=== PATIENT | female | born 1960 | race Caucasian/White ===

== ENCOUNTER → 2018-02-01 09:19 | Outpatient (CLI) | payer OTHER, SELFPAY ==
--- NOTE | 2018-02-01 | DI.US.S_ITS ---
ULTRASOUND OF LEFT BREAST: 02/01/2018 CLINICAL: Palpable left breast lumps. Comparison is made to exams dated: 02/01/2018 mammogram, 10/16/2017 mammogram, 11/08/2015 mammogram, and 08/01/2013 mammogram - [facility]. Color flow ultrasound of the left breast was performed. Jimenez scale images of the real-time examination were reviewed. There are sonographically normal left axillary lumph nodes. IMPRESSION: NEGATIVE There is no sonographic evidence of malignancy. The more posterior areas of concern may correspond to lymph nodes. For the more anterior areas of concern there are no abnormalities seen in the left breast to correspond. Recommend any decision for further evaluation be based on clinical findings. A 1 year screening mammogram is recommended. This exam was interpreted at Station ID: [id number]. Electronically Signed By: Mane Luke M.D. cj/:02/01/2018 11:28:48 letter sent: Clinical Evaluation Ultrasound BI-RADS: 1 Negative
--- NOTE | 2018-02-01 | DI.MG.S_ITS ---
UNILATERAL LEFT DIGITAL DIAGNOSTIC MAMMOGRAM 3D/2D: 02/01/2018 CLINICAL: Left breast masses. Comparison is made to exams dated: 10/16/2017 mammogram, 11/08/2015 mammogram, and 08/01/2013 mammogram - [facility]. The tissue of the left breast is heterogeneously dense. This may lower the sensitivity of mammography. No significant masses, calcifications, or other findings are seen in the breast. IMPRESSION: INCOMPLETE: NEEDS ADDITIONAL IMAGING EVALUATION There are no abnormalities seen in the left breast to correspond with the area of clinical concern and palpable nodularities, however, ultrasound is recommended. This exam was interpreted at Station ID: [id number]. NOTE: For mammograms, a report in lay terms will be sent to the patient. Approximately 15% of breast malignancies will not be visualized mammographically. In the management of a palpable breast mass, a negative mammogram must not discourage biopsy of a clinically suspicious lesion. Electronically Signed By: Mane kenny/alvin:02/01/2018 11:27:03 ACR BI-RADS Category 0: Incomplete [id number]
== END ==
PROVIDERS: PCP Family Medicine; Visit Provider Nurse Practitioner Family
DX: R92.8 Other abnormal and inconclusive findings on diagnostic imaging of breast (principal); N63.20 Unspecified lump in the left breast, unspecified quadrant
CPT/HCPCS: 76642; 77065; G0279

== ENCOUNTER → 2018-12-13 13:47 | Outpatient (CLI) | payer OTHER, SELFPAY | PROVIDERS: PCP Family Medicine; Visit Provider Nurse Practitioner Family | DX: M81.0 Age-related osteoporosis without current pathological fracture (principal); Z78.0 Asymptomatic menopausal state; E55.9 Vitamin D deficiency, unspecified; E28.39 Other primary ovarian failure; Z82.62 Family history of osteoporosis; Z87.891 Personal history of nicotine dependence | CPT/HCPCS: 77080 ==

== ENCOUNTER → 2019-02-03 10:52 | Outpatient (CLI) | payer OTHER, SELFPAY ==
--- NOTE | 2019-02-03 | DI.MG.S_ITS ---
BILATERAL DIGITAL SCREENING MAMMOGRAM 3D/2D WITH CAD: 02/03/2019 CLINICAL: Routine screening. Family history of breast cancer. Comparison is made to exams dated: 02/01/2018 mammogram, 10/16/2017 mammogram, 11/08/2015 mammogram, and 08/01/2013 mammogram - [facility]. The tissue of both breasts is heterogeneously dense. This may lower the sensitivity of mammography. Current study was also evaluated with a Computer Aided Detection (CAD) system. No significant masses, calcifications, or other findings are seen in either breast. There has been no significant interval change. IMPRESSION: NEGATIVE There is no mammographic evidence of malignancy. A 1 year screening mammogram is recommended. This exam was interpreted at Station ID: [id number]. NOTE: For mammograms, a report in lay terms will be sent to the patient. Approximately 15% of breast malignancies will not be visualized mammographically. In the management of a palpable breast mass, a negative mammogram must not discourage biopsy of a clinically suspicious lesion. Electronically Signed By: Reddy gallardo/alvin:02/03/2019 16:05:02 copy to: MICHAEL MEJÍA letter sent: Normal Exam ACR BI-RADS Category 1: Negative [id number]
== END ==
PROVIDERS: PCP Family Medicine; Visit Provider Nurse Practitioner Family
DX: Z12.31 Encounter for screening mammogram for malignant neoplasm of breast (principal); Z80.3 Family history of malignant neoplasm of breast
CPT/HCPCS: 77063; 77067

== ENCOUNTER 2019-03-31 12:33 | Emergency (ER) | payer OTHER, SELFPAY ==
[2019-03-31] VITALS (9 sets, daily range): BP systolic 102–142; BP diastolic 47–72; PULSE 59–89; RESP 14–24; TEMP 36.8–38.8; O2SAT 98–100; BMI 20.9
--- NOTE | 2019-03-31 12:59 | DI.US.S_ITS ---
PROCEDURE: US ABDOMEN COMPLETE INDICATIONS: RLQ PAIN, CONCERN FOR APPY VS. OTHER TECHNIQUE: Real-time scanning was performed of the abdominal and retroperitoneal organs, with image documentation. COMPARISON: None. FINDINGS: Liver: Liver is normal in size. There is an echogenic solid lesion in the lateral segment of the left lobe measuring 2.3 x 1.3 x 0.9 cm, likely representing a hemangioma. There is a pleural-based nodule subjacent to the right lobe of the liver, in the right hemithorax, measuring 1.9 x 1.3 x 2.2 cm. Gallbladder: Is contracted. No gallstones are identified. Biliary ducts: Intrahepatic bile ducts are non-dilated. Extrahepatic bile duct caliber measures 5 mm. Normal is 6-7 mm or less in diameter, or 10 mm or less post-cholecystectomy. Pancreas: Visualized portions of the pancreas are sonographically normal. Spleen: Spleen is normal in size and homogeneous in echotexture. Kidneys: Kidneys are normal in size and echotexture. Right kidney measures 11.2 cm long; left kidney measures 10.7 cm long. No hydronephrosis or nephrolithiasis. No solid masses. Aorta: Visualized aorta is normal in caliber at less than 3 cm. Iliacs: Proximal common iliac arteries are normal in caliber at less than 2.5 cm. IVC: Intrahepatic inferior vena cava is patent. Miscellaneous: No free abdominal fluid. No appendix is identified. Right lower quadrant was interrogated with 5 mm linear transducer. IMPRESSION: 1. No sonographic evidence of acute appendicitis. 2. Probable hemangioma, left lobe of liver. 3. Pleural based nodular density in the extreme right lung base. Comment: Consider CT for further evaluation. Findings were discussed with Dr. Pete at the time of study dictation. Dictated by: Kan Giordano M.D. on 03/31/2019 at 14:07 Approved by: Kan Giordano M.D. on 03/31/2019 at 14:18
[2019-03-31 13:40] LABS: Bacteria Urine None Seen
[2019-03-31 14:31] LABS: Add Manual Diff / Slide Review NO; Basophils Absolute Auto 0 /uL (0-100); Basophils Percent Auto 0.3 % (0-2); Eosinophils Absolute Auto 0 /uL (0-450); Eosinophils Percent Auto 0.4 % (2-4); Hematocrit 36.3 % (36-46); Lymphocytes Absolute Auto 600 /uL (1100-4500); Lymphocytes Percent Auto 11.2 % (25-40); Mean Corpuscular Hemoglobin 27.2 PG (26-34); Mean Corpuscular Volume 82.2 fL (80-100); Monocytes Absolute Auto 700 /uL (0-900); Monocytes Percent Auto 13.9 % (3-14); Neutrophils Absolute Auto 3800 /uL (1500-7000); Neutrophils Percent Auto 74.2 % (50-75); Platelet Count 148 X10^3/uL (150-400); Red Blood Cell Count 4.42 X10^6/uL (4.0-5.2); Red Cell Distribution Width 12.7 % (11.6-14.8); White Blood Cell Count 5.1 X10^3/uL (4.5-11.0)
[2019-03-31 14:31] LABS: INR 1.2 (0.9-1.3); Prothrombin Time 13.5 SECONDS (10.1-12.7)
[2019-03-31 14:33] LABS: PTT Partial Thromboplastin Tim 28 SECONDS (26.4-36.2)
[2019-03-31 14:34] LABS: Alanine Aminotransferase 10 IU/L (9-52); Albumin 4.2 g/dL (3.5-5.0); Albumin Globulin Ratio 1.2 (1.0-2.8); Alkaline Phosphatase 65 U/L (38-126); Aspartate Aminotransferase 16 IU/L (14-36); Bilirubin Total 0.4 mg/dL (0.2-1.3); Blood Urea Nitrogen 12 mg/dL (7-17); Calcium 9.1 mg/dL (8.4-10.2); Carbon Dioxide 30 mmol/L (22-32); Chloride 98 mmol/L (98-107); Estimated Glomerular Filt Rate > 60.0 mL/min (>60); Globulin 3.6 g/dL (1.7-4.1); Glucose 88 mg/dL (80-110); HEMOLYSIS < 15 (0-50); Lipase 53 U/L (23-300); Potassium 3.6 mmol/L (3.4-5.1); Sodium 139 mmol/L (137-145); Total Protein 7.8 g/dL (6.3-8.2)
[2019-03-31 14:46] LABS: Culture Indicated Urine Cult Not Indicated; RBC Urine 5-10/HPF (0-5/HPF); Squamous Epithelial Cell Urine 5-10 /HPF (0-5/HPF); WBC Urine 1-5/HPF (0-5/HPF)
[2019-03-31] MEDS: ACETAMINOPHEN 325 MG TABLET 975 MG PO (14:49)
--- NOTE | 2019-03-31 16:27 | DI.CT.S_ITS ---
PROCEDURE: CT ABDOMEN PELVIS W CON INDICATIONS: abdominal pain and fever, flank pain TECHNIQUE: After the administration of intravenous contrast, 5 mm thick sections acquired from the diaphragm to the symphysis. 5 mm coronal and sagittal reformats were acquired. For radiation dose reduction, the following was used: automated exposure control, adjustment of mA and/or kV according to patient size. COMPARISON: None. FINDINGS: Image quality: Excellent. ABDOMEN: Lung bases: Patchy bronchopneumonia involving the right lower lobe.. Heart size is normal. Solid organs: Liver is normal in size and enhancement. Gallbladder is contracted. Biliary system is non dilated. Pancreas enhances normally. Spleen is normal in size and enhancement. No adrenal nodules. Kidneys demonstrate normal size and enhancement, without hydronephrosis. Peritoneum and bowel: Bowel loops demonstrate normal wall thickness and caliber. No free fluid or air. A normal appendix is identified. Nodes and vessels: No retroperitoneal or mesenteric adenopathy by size criteria. Aorta and inferior vena cava are normal in size. Miscellaneous: No ventral hernias. PELVIS: Genitourinary: Bladder wall thickness is normal. Miscellaneous: No inguinal hernias or adenopathy. There is a fairly large amount of air present in the vagina. Bones: No suspicious bony lesions. No vertebral body compression fractures. IMPRESSION: 1. There is bronchopneumonia involving the right lower lobe. Suggest progress films until clear. 2. There is a fairly large amount of air, greater than typically seen, and the vagina. Recommend clinical correlation to exclude rectovaginal fistula. 3. Normal appendix. Dictated by: Kan Giordano M.D. on 03/31/2019 at 16:56 Approved by: Kan Giordano M.D. on 03/31/2019 at 17:04
[2019-03-31] MEDS: SODIUM CHLORIDE 0.9% 1,000 ML 1000 ML IV (16:58)
--- NOTE | 2019-03-31 17:35 | ED.ABDPAIN ---
HPI - Abdominal Pain <Daquan Diop [facility] - Last Filed: 04/01/19 01:02> General Chief Complaint: Abdominal Pain Stated Complaint: possible appendicitis Time Seen by Provider: 03/31/19 12:59 Source: patient Mode of arrival: ambulatory Limitations: no limitations History of Present Illness HPI narrative: This is a pleasant 59-year-old female, previous long time smoker, who presents with her friend with chief complain of fever, chills, upper mid left abdomen pain for last 6 days. She reports urinary frequency but no other urinary symptoms such as urgency, dysuria, or hematuria. The patient is from [place] and she was referred by her primary care provider for evaluation in ER to rule out appendicitis. The patient reports she had intermittent nausea, mildly decreased appetite. Her stool has been normal for her and denies diarrhea. She had a small p.o. intake at 12:00 p.m. Related Data Home Medications Medication Instructions Recorded Confirmed acyclovir 400 mg PO TID PRN 03/31/19 03/31/19 azelastine 1 spray INTRANASAL BID PRN 03/31/19 03/31/19 sertraline 100 mg PO QPM 03/31/19 03/31/19 Previous Rx's Medication Instructions Recorded diclofenac sodium [Voltaren] 1 ganesh TOPICAL QID #100 gm 01/01/17 doxycycline hyclate 100 mg PO BID 7 Days #14 tab 03/31/19 ondansetron 4 mg PO Q6H PRN #10 tab 03/31/19 Allergies Allergy/AdvReac Type Severity Reaction Status Date / Time amoxicillin [AMOXICILLIN] Allergy Intermediate HIVES Verified 04/01/19 14:14 Penicillins [PENICILLINS] Allergy Intermediate HIVES Verified 04/01/19 14:14 ENVIRONMENTAL Allergy Intermediate RUNNY Uncoded 04/01/19 14:14 NOSE, HEAD PRESSURE Review of Systems <Daquan Diop [facility] - Last Filed: 04/01/19 01:02> Review of Systems General: See HPI HEENT: Denies sinus pain, ear pain, sore throat, difficulty swallowing, dizziness. Respiratory: Denies dyspnea, cough, wheezing, hemoptysis, sputum. Cardiovascular: Denies chest pain, palpitations, orthopnea, edema. Gastrointestinal: See HPI : See HPI Musculoskeletal: Denies weakness, joint pain or bony pain. Skin: Denies rash, skin lesions, or other. Neurologic: Denies weakness, headache, numbness, change in speech, confusion, seizures, incoordination. Psychiatric: No concerning psychosocial issues. 12-point review of systems is negative except for those stated above. PFSH <JOSEMANUEL ClaireP - Last Filed: 04/01/19 01:02> Medical History (System 04/01/19 @ 14:14 by Any Acosta) Depression (Acute) Seasonal allergic rhinitis (Acute) HSV infection (Chronic) Surgical History (System 04/01/19 @ 14:14 by Any Acosta) H/O thumb surgery (Chronic) History of tubal ligation (Chronic) S/P breast lumpectomy (Chronic) Social History (System 04/01/19 @ 14:14 by Any Acosta) Smoking Status: Former smoker Social History (System 04/01/19 @ 14:14 by Any Acosta) Smoking Status: Former smoker Exam <Daquan Jadon [facility] - Last Filed: 04/01/19 01:02> Narrative Exam Narrative: GEN: Alert, oriented x 3, appears to be younger than her stated age, and in no acute distress. Head: Normal cephalic, atraumatic. No scalp or temporal tenderness, palpable mass or rash. EYES: Pupils are equal, round, and reactive to light and accommodation. Extraocular muscles are intact bilaterally. There is no subconjunctival hemorrhage, exudate and sclera non-icteric. ENT: Bilateral auditory canals and tympanic membranes. Hearing grossly intact. Nose without bleeding, purulent discharge. Mucous membrane moist, no mucosal lesion. Throat without erythema, tonsillar hypertrophy or exudate. Uvula in midline, airway patent. Neck: Trachea in midline. No JVD, non-tender without lymphadenopathy. No masses or thyroid megaly. Supple, non-tender and meningeal signs. CARDIAC: Normal regular rate and rhythm without murmurs, gallops, or rubs. No chest wall tenderness. No peripheral edema, cyanosis or pallor. Capillary refill is less than 2 seconds. RESPIRATORY: Lungs are cleat to auscultate bilaterally. No cough, wheezes, rales, or rhonchi. No stridor, respiratory distress, increase work of breathing, or accessary muscle used. ABD: Abdomen soft, non-distended, tender to palpate in mid abdomen. No guarding or rebound tenderness to palpate. Bowel sounds are normal in all 4 quadrants. There is no palpable masses or organomegaly. EXT: Full painless ROM of all extremities with no loss of sensation, strength, effusion or edema. SKIN: Hot, dry, normal color for patient. No erythema, lesions or rash. BACK: Nontender without deformity or crepitance. Bilateral flank tenderness by deep palpation. NEUROLOGICAL: Alert and oriented to place, time and person. Sensation and motor function intact bilaterally. No facial droops, dysphasia. PSYCHIATRIC: Good judgement and reason, without hallucinations, abnormal affect or abnormal behaviors during the examination. Initial Vital Signs Initial Vital Signs: Vital Signs Temperature 100.1 F H 03/31/19 12:48 Pulse Rate 79 03/31/19 12:48 Respiratory Rate 16 03/31/19 12:48 Blood Pressure 142/72 H 03/31/19 12:48 Pulse Oximetry 100 03/31/19 12:48 <Haley Pete DO - Last Filed: 04/02/19 18:24> Initial Vital Signs Initial Vital Signs: Vital Signs Temperature 100.1 F H 03/31/19 12:48 Pulse Rate 79 03/31/19 12:48 Respiratory Rate 16 03/31/19 12:48 Blood Pressure 142/72 H 03/31/19 12:48 Pulse Oximetry 100 03/31/19 12:48 Course <RITESH Claire - Last Filed: 04/01/19 01:02> Orders Ordered: Discontinued Medications Acetaminophen (Tylenol) 975 mg PO NOW ONE Stop: 03/31/19 14:47 Last Admin: 03/31/19 14:49 Dose: 975 mg Doxycycline Hyclate (Vibramycin) 100 mg PO NOW ONE Stop: 03/31/19 18:19 Last Admin: 03/31/19 18:30 Dose: 100 mg Sodium Chloride (Normal Saline 0.9%) 1,000 mls @ 1,000 mls/hr IV BOLUS ONE Stop: 03/31/19 17:27 Last Infusion: 03/31/19 18:17 Dose: 0 mls/hr Admin: 03/31/19 16:58 Dose: 1,000 mls/hr Levofloxacin (Levaquin) 500 mg PO NOW ONE Stop: 03/31/19 18:09 Last Admin: 03/31/19 18:18 Dose: Not Given Vital Signs - 8 hr 03/31/19 17:12 03/31/19 18:50 03/31/19 19:05 Temperature 98.3 F Pulse Rate 61 59 L Respiratory Rate 14 17 Blood Pressure [Left Arm] 102/57 L 102/60 Pulse Oximetry 99 100 <Haley Pete DO - Last Filed: 04/02/19 18:24> Orders Ordered: Discontinued Medications Acetaminophen (Tylenol) 975 mg PO NOW ONE Stop: 03/31/19 14:47 Last Admin: 03/31/19 14:49 Dose: 975 mg Doxycycline Hyclate (Vibramycin) 100 mg PO NOW ONE Stop: 03/31/19 18:19 Last Admin: 03/31/19 18:30 Dose: 100 mg Sodium Chloride (Normal Saline 0.9%) 1,000 mls @ 1,000 mls/hr IV BOLUS ONE Stop: 03/31/19 17:27 Last Infusion: 03/31/19 18:17 Dose: 0 mls/hr Admin: 03/31/19 16:58 Dose: 1,000 mls/hr Levofloxacin (Levaquin) 500 mg PO NOW ONE Stop: 03/31/19 18:09 Last Admin: 03/31/19 18:18 Dose: Not Given Vital Signs - 8 hr 03/31/19 17:12 03/31/19 18:50 03/31/19 19:05 Temperature 98.3 F Pulse Rate 61 59 L Respiratory Rate 14 17 Blood Pressure [Left Arm] 102/57 L 102/60 Pulse Oximetry 99 100 MDM - Abdominal Pain <RITESH Claire - Last Filed: 04/01/19 01:02> Differential Diagnosis Differential diagnosis: Likely abdominal pain, acute appendicitis, pancreatitis and other (kidney infection, UTI) Medical Records Attestation: I reviewed the patient's medical records. Lab Data Attestation: I reviewed the patient's lab results. Result diagrams: 03/31/19 14:19 03/31/19 14:20 Lab Results 03/31/19 03/31/19 03/31/19 Range/Units 12:50 14:19 14:20 WBC 5.1 (4.5-11.0) X10^3/uL RBC 4.42 (4.0-5.2) X10^6/uL Hgb 12.0 (12.0-16.0) g/dL Hct 36.3 (36-46) % MCV 82.2 (80-100) fL MCH 27.2 (26-34) PG MCHC 33.0 (30-36) % RDW 12.7 (11.6-14.8) % Plt Count 148 L (150-400) X10^3/uL Neut % (Auto) 74.2 (50-75) % Lymph % (Auto) 11.2 L (25-40) % [place] % (Auto) 13.9 (3-14) % Eos % (Auto) 0.4 L (2-4) % Baso % (Auto) 0.3 (0-2) % Neut # (Auto) 3800 (2468-8504) /uL Lymph # (Auto) 600 L (9728-8013) /uL [place] # (Auto) 700 (0-900) /uL Eos # (Auto) 0 (0-450) /uL Baso # (Auto) 0 (0-100) /uL PT 13.5 H (10.1-12.7) SECONDS INR 1.2 (0.9-1.3) APTT 28 (26.4-36.2) SECONDS Sodium (137-145) mmol/L Potassium (3.4-5.1) mmol/L Chloride (98-107) mmol/L Carbon Dioxide (22-32) mmol/L BUN (7-17) mg/dL Creatinine (0.52-1.04) mg/dL Estimated GFR (>60) mL/min BUN/Creatinine Ratio (6-22) Glucose (80-110) mg/dL Calcium (8.4-10.2) mg/dL Total Bilirubin (0.2-1.3) mg/dL AST (14-36) IU/L ALT (9-52) IU/L Alkaline Phosphatase (38-126) U/L Total Protein (6.3-8.2) g/dL Albumin (3.5-5.0) g/dL Globulin (1.7-4.1) g/dL Albumin/Globulin Ratio (1.0-2.8) Lipase (23-300) U/L Urine RBC 5-10/hpf H (0-5/HPF) Urine WBC 1-5/hpf (0-5/HPF) Ur Squamous Epith Cells 5-10 /hpf H (0-5/HPF) Urine Bacteria None seen (None) Ur Culture Indicated? Cult not indicated 03/31/19 Range/Units 14:20 WBC (4.5-11.0) X10^3/uL RBC (4.0-5.2) X10^6/uL Hgb (12.0-16.0) g/dL Hct (36-46) % MCV (80-100) fL MCH (26-34) PG MCHC (30-36) % RDW (11.6-14.8) % Plt Count (150-400) X10^3/uL Neut % (Auto) (50-75) % Lymph % (Auto) (25-40) % [place] % (Auto) (3-14) % Eos % (Auto) (2-4) % Baso % (Auto) (0-2) % Neut # (Auto) (9516-2933) /uL Lymph # (Auto) (7581-0373) /uL [place] # (Auto) (0-900) /uL Eos # (Auto) (0-450) /uL Baso # (Auto) (0-100) /uL PT (10.1-12.7) SECONDS INR (0.9-1.3) APTT (26.4-36.2) SECONDS Sodium 139 (137-145) mmol/L Potassium 3.6 (3.4-5.1) mmol/L Chloride 98 (98-107) mmol/L Carbon Dioxide 30 (22-32) mmol/L BUN 12 (7-17) mg/dL Creatinine 0.40 L (0.52-1.04) mg/dL Estimated GFR > 60.0 (>60) mL/min BUN/Creatinine Ratio 30.0 H (6-22) Glucose 88 (80-110) mg/dL Calcium 9.1 (8.4-10.2) mg/dL Total Bilirubin 0.4 (0.2-1.3) mg/dL AST 16 (14-36) IU/L ALT 10 (9-52) IU/L Alkaline Phosphatase 65 (38-126) U/L Total Protein 7.8 (6.3-8.2) g/dL Albumin 4.2 (3.5-5.0) g/dL Globulin 3.6 (1.7-4.1) g/dL Albumin/Globulin Ratio 1.2 (1.0-2.8) Lipase 53 (23-300) U/L Urine RBC (0-5/HPF) Urine WBC (0-5/HPF) Ur Squamous Epith Cells (0-5/HPF) Urine Bacteria (None) Ur Culture Indicated? Point of care testing: Urine Dip Bedside Urine Glucose Negative Bedside Urine Bilirubin + 1 Bedside Urine Ketone +/- 5 Urine Specific [place] 1.020 Bedside Urine Occult Blood +++ Bedside Urine pH 6.0 Bedside Urine Protein + 30 Bedside Urine Urobilinogen +/- 1mg Bedside Urine Nitrite - Negative Bedside Urine Leukocytes + [address] scan - abdomen: Radiologist's impression: [address] [address] [address] Scan Report Signed Patient: Gia Mendez LMR#: [id number] : 8Acct:[id number] Age/Sex: 59 / FDate of Service: 03/31/19 Loc: ED Accession Number: [id number] Procedure: CT abdomen pelvis w con Ordering Provider: Daquan Diop PROCEDURE: CT ABDOMEN PELVIS W CON INDICATIONS: abdominal pain and fever, flank pain TECHNIQUE: After the administration of intravenous contrast, 5 mm thick sections acquired from the diaphragm to the symphysis. 5 mm coronal and sagittal reformats were acquired. For radiation dose reduction, the following was used: automated exposure control, adjustment of mA and/or kV according to patient size. COMPARISON: None. FINDINGS: Image quality: Excellent. ABDOMEN: Lung bases: Patchy bronchopneumonia involving the right lower lobe.. Heart size is normal. Solid organs: Liver is normal in size and enhancement. Gallbladder is contracted. Biliary system is non dilated. Pancreas enhances normally. Spleen is normal in size and enhancement. No adrenal nodules. Kidneys demonstrate normal size and enhancement, without hydronephrosis. Peritoneum and bowel: Bowel loops demonstrate normal wall thickness and caliber. No free fluid or air. A normal appendix is identified. Nodes and vessels: No retroperitoneal or mesenteric adenopathy by size criteria. Aorta and inferior vena cava are normal in size. Miscellaneous: No ventral hernias. PELVIS: Genitourinary: Bladder wall thickness is normal. Miscellaneous: No inguinal hernias or adenopathy. There is a fairly large amount of air present in the vagina. Bones: No suspicious bony lesions. No vertebral body compression fractures. IMPRESSION: 1. There is bronchopneumonia involving the right lower lobe. Suggest progress films until clear. 2. There is a fairly large amount of air, greater than typically seen, and the vagina. Recommend clinical correlation to exclude rectovaginal fistula. 3. Normal appendix. Dictated by: Kan Giordano M.D. on 03/31/2019 at 16:56 Approved by: Kan Giordano M.D. on 03/31/2019 at 17:04 US - abdomen: Radiologist's impression: [address] [address] Ultrasound Report Signed Patient: Gia Mendez LMR#: [id number] : 8Acct:[id number] Age/Sex: 59 / FDate of Service: 03/31/19 Loc: ED Accession Number: [id number] Procedure: US abdomen complete Ordering Provider: Haley Pete D.O. PROCEDURE: US ABDOMEN COMPLETE INDICATIONS: RLQ PAIN, CONCERN FOR APPY VS. OTHER TECHNIQUE: Real-time scanning was performed of the abdominal and retroperitoneal organs, with image documentation. COMPARISON: None. FINDINGS: Liver: Liver is normal in size. There is an echogenic solid lesion in the lateral segment of the left lobe measuring 2.3 x 1.3 x 0.9 cm, likely representing a hemangioma. There is a pleural-based nodule subjacent to the right lobe of the liver, in the right hemithorax, measuring 1.9 x 1.3 x 2.2 cm. Gallbladder: Is contracted. No gallstones are identified. Biliary ducts: Intrahepatic bile ducts are non-dilated. Extrahepatic bile duct caliber measures 5 mm. Normal is 6-7 mm or less in diameter, or 10 mm or less post-cholecystectomy. Pancreas: Visualized portions of the pancreas are sonographically normal. Spleen: Spleen is normal in size and homogeneous in echotexture. Kidneys: Kidneys are normal in size and echotexture. Right kidney measures 11.2 cm long; left kidney measures 10.7 cm long. No hydronephrosis or nephrolithiasis. No solid masses. Aorta: Visualized aorta is normal in caliber at less than 3 cm. Iliacs: Proximal common iliac arteries are normal in caliber at less than 2.5 cm. IVC: Intrahepatic inferior vena cava is patent. Miscellaneous: No free abdominal fluid. No appendix is identified. Right lower quadrant was interrogated with 5 mm linear transducer. IMPRESSION: 1. No sonographic evidence of acute appendicitis. 2. Probable hemangioma, left lobe of liver. 3. Pleural based nodular density in the extreme right lung base. Comment: Consider CT for further evaluation. Findings were discussed with Dr. Pete at the time of study dictation. Dictated by: Kan Giordano M.D. on 03/31/2019 at 14:07 Approved by: Kan Giordano M.D. on 03/31/2019 at 14:18 MDM Narrative Medical decision making narrative: This is a 59-year-old female who is from [place] and she was referred by her primary care provider for evaluation on her fever and abdominal discomfort for 6 days to rule out appendicitis. She reported intermittent nausea and markedly decreased appetite. She reported urinary frequency and bilateral flank pain for physical exam. She denied recent cough, short of breath, chest pain. According to urine test, it showed leukocyte esterase but no nitrite, +++ of occult hematuria. There was no urine bacteria was seen by microscopic test and it is not being cultured at this time. Patient's CBC and CMP merchant unremarkable. Abdomen ultrasound was done and indicates no acute appendicitis, probable hemangioma on left lobe of liver, pleural-based nodular density in the extreme right lung base. CT for further evaluation was considered and abdomen/pelvis CT was obtained and it indicates bronchopneumonia involving the right lower lobe. There was fairly large amount of air was found in the vagina. The patient denies signs of rectovaginal fistula such as stool mixed in urine or passing flatulence through vagina. However, the patient reports she has occasional loose stool. The pelvic exam shows normal exam without any stool material seen in vaginal vault and no fistula was seen. The patient was medicated with doxycycline 100 mg by p.o. prior to DC to home and to continue b.i.d. dosing for 7 days. The patient was advised to follow with her primary care physician in next 2-3 days for re-evaluation. Return precautions were discussed with the patient. The patient was treated with Tylenol in her ED course due to elevated temperature to 101.8. The patient felt improved after the IV fluids and Tylenol. The patient's temperature decreased to normal limit. All questions were answered and the patient agrees with the treatment plan. <Haley Pete, DO - Last Filed: 04/02/19 18:24> Lab Data Lab Results 03/31/19 03/31/19 03/31/19 Range/Units 12:50 14:19 14:20 WBC 5.1 (4.5-11.0) X10^3/uL RBC 4.42 (4.0-5.2) X10^6/uL Hgb 12.0 (12.0-16.0) g/dL Hct 36.3 (36-46) % MCV 82.2 (80-100) fL MCH 27.2 (26-34) PG MCHC 33.0 (30-36) % RDW 12.7 (11.6-14.8) % Plt Count 148 L (150-400) X10^3/uL Neut % (Auto) 74.2 (50-75) % Lymph % (Auto) 11.2 L (25-40) % [place] % (Auto) 13.9 (3-14) % Eos % (Auto) 0.4 L (2-4) % Baso % (Auto) 0.3 (0-2) % Neut # (Auto) 3800 (8386-5871) /uL Lymph # (Auto) 600 L (0547-9860) /uL [place] # (Auto) 700 (0-900) /uL Eos # (Auto) 0 (0-450) /uL Baso # (Auto) 0 (0-100) /uL PT 13.5 H (10.1-12.7) SECONDS INR 1.2 (0.9-1.3) APTT 28 (26.4-36.2) SECONDS Sodium (137-145) mmol/L Potassium (3.4-5.1) mmol/L Chloride (98-107) mmol/L Carbon Dioxide (22-32) mmol/L BUN (7-17) mg/dL Creatinine (0.52-1.04) mg/dL Estimated GFR (>60) mL/min BUN/Creatinine Ratio (6-22) Glucose (80-110) mg/dL Calcium (8.4-10.2) mg/dL Total Bilirubin (0.2-1.3) mg/dL AST (14-36) IU/L ALT (9-52) IU/L Alkaline Phosphatase (38-126) U/L Total Protein (6.3-8.2) g/dL Albumin (3.5-5.0) g/dL Globulin (1.7-4.1) g/dL Albumin/Globulin Ratio (1.0-2.8) Lipase (23-300) U/L Urine RBC 5-10/hpf H (0-5/HPF) Urine WBC 1-5/hpf (0-5/HPF) Ur Squamous Epith Cells 5-10 /hpf H (0-5/HPF) Urine Bacteria None seen (None) Ur Culture Indicated? Cult not indicated 03/31/19 Range/Units 14:20 WBC (4.5-11.0) X10^3/uL RBC (4.0-5.2) X10^6/uL Hgb (12.0-16.0) g/dL Hct (36-46) % MCV (80-100) fL MCH (26-34) PG MCHC (30-36) % RDW (11.6-14.8) % Plt Count (150-400) X10^3/uL Neut % (Auto) (50-75) % Lymph % (Auto) (25-40) % [place] % (Auto) (3-14) % Eos % (Auto) (2-4) % Baso % (Auto) (0-2) % Neut # (Auto) (2548-5334) /uL Lymph # (Auto) (3632-1793) /uL [place] # (Auto) (0-900) /uL Eos # (Auto) (0-450) /uL Baso # (Auto) (0-100) /uL PT (10.1-12.7) SECONDS INR (0.9-1.3) APTT (26.4-36.2) SECONDS Sodium 139 (137-145) mmol/L Potassium 3.6 (3.4-5.1) mmol/L Chloride 98 (98-107) mmol/L Carbon Dioxide 30 (22-32) mmol/L BUN 12 (7-17) mg/dL Creatinine 0.40 L (0.52-1.04) mg/dL Estimated GFR > 60.0 (>60) mL/min BUN/Creatinine Ratio 30.0 H (6-22) Glucose 88 (80-110) mg/dL Calcium 9.1 (8.4-10.2) mg/dL Total Bilirubin 0.4 (0.2-1.3) mg/dL AST 16 (14-36) IU/L ALT 10 (9-52) IU/L Alkaline Phosphatase 65 (38-126) U/L Total Protein 7.8 (6.3-8.2) g/dL Albumin 4.2 (3.5-5.0) g/dL Globulin 3.6 (1.7-4.1) g/dL Albumin/Globulin Ratio 1.2 (1.0-2.8) Lipase 53 (23-300) U/L Urine RBC (0-5/HPF) Urine WBC (0-5/HPF) Ur Squamous Epith Cells (0-5/HPF) Urine Bacteria (None) Ur Culture Indicated? Point of care testing: Urine Dip Bedside Urine Glucose Negative Bedside Urine Bilirubin + 1 Bedside Urine Ketone +/- 5 Urine Specific [place] 1.020 Bedside Urine Occult Blood +++ Bedside Urine pH 6.0 Bedside Urine Protein + 30 Bedside Urine Urobilinogen +/- 1mg Bedside Urine Nitrite - Negative Bedside Urine Leukocytes + 70 Esterase Discharge Plan Departure Patient Disposition: Home Clinical Impression: Pneumonia Qualifiers: Pneumonia type: due to unspecified organism Laterality: right Lung location: lower lobe of lung Qualified Code(s): J18.1 - Lobar pneumonia, unspecified organism Fever Qualifiers: Fever type: unspecified Qualified Code(s): R50.9 - Fever, unspecified Discharge Date/Time: 03/31/19 19:09 Interventions: ED Discharge Assessment Last Done: 03/31/19 19:05 Instructions: DI for Pneumonia -- Adult, DI for Fever (Symptom) -- Adult Activity Restrictions/Additional Instructions: You have been diagnosed with [Pneumonia according to CT and US, fever, and incidental hepatic hemangioma per US test]. What to do: *Take your medications as directed. You'll be going home with doxycycline for 7 days to take twice a day. Please complete a course of antibiotic medications unless this issue allergy reaction. He may be sun sensitive, so please take precaution. He can take Zofran as needed for nausea. *Follow up with your primary care provider in 2-3 days, call for an appointment. Let them know you were seen in the ED and that we asked you to be seen in follow up. *Return to ED if you have any new, worsening, or concerning symptoms, such as [worsening fever, fatigue, unable to tolerate fluids, increasing discomfort, chest pain, difficulty breathing, any acute concerns]. Prescriptions: New doxycycline hyclate 100 mg tablet 100 mg PO BID 7 Days Qty: 14 RF: 0 ondansetron 4 mg tablet,disintegrating 4 mg PO Q6H PRN (Reason: nausea and vomiting) Qty: 10 RF: 0 No Action diclofenac sodium [Voltaren] 1 % gel 1 ganesh Topical QID Qty: 100 RF: 1 sertraline 100 MG tablet 100 mg PO QPM RF: 0 azelastine 137 mcg (0.1 %) aerosol,spray 1 spray intranasal BID PRN (Reason: Allergy Symptoms) RF: 0 acyclovir 400 MG tablet 400 mg PO TID PRN (Reason: Outbreak) RF: 0 Referrals: Jewel Norton MD [Primary Care Provider] - <Haley Pete DO - Last Filed: 04/02/19 18:24> Cosign ED Attending Cosignature Attestation: I was immediately available in the department for consultation, case was discussed. This documentation has been reviewed and I agree with assessment and plan. Supervised by Haley Pete DO
[2019-03-31] MEDS: DOXYCYCLINE HYCLATE 100 MG TABLET PO (18:30)
== END 2019-03-31 19:09 | disposition home or self-care (01) ==
PROVIDERS: Emergency Medicine; Emergency Provider Nurse Practitioner Family; PCP Family Medicine
DX: J18.1 Lobar pneumonia, unspecified organism (principal)
CPT/HCPCS: 74177; 76700; 80053; 81003; 81015; 83690; 85025; 85610; 85730; 93005; 93010; 96360; 99283; 99284; Q9967

== ENCOUNTER 2021-09-20 09:24 | Emergency (ER) | payer OTHER, SELFPAY ==
[2021-09-20 09:30] VITALS: BP 173/79; PULSE 68; RESP 16; TEMP 36.4; O2SAT 100; BMI 22.6
--- NOTE | 2021-09-20 09:35 | DI.RAD.S_ITS ---
PROCEDURE: XR LUMBAR SPINE 2-3V INDICATIONS: sudden back pain TECHNIQUE: 3 views of the lumbar spine were acquired. COMPARISON: None. FINDINGS: Bones: 5 [id number] vertebrae are present. There is normal bony alignment. Mild loss of height noted in the superior endplate of the T12 vertebral body. No suspicious bony lesions. Mild multilevel degenerative disc disease. Mild facet hypertrophy noted in the lower lumbar spine. Soft tissues: Overlying bowel gas pattern is normal. No suspicious soft tissue calcifications. IMPRESSION: Mild T12 superior endplate compression fracture of indeterminate age. If symptoms and/or clinical suspicion for pathology persists, evaluation with MRI should be considered for further assessment. Dictated by: Salma Garcia MD, PhD on 09/20/2021 at 10:12 Approved by: Salma Garcia MD, PhD on 09/20/2021 at 10:27
[2021-09-20 10:11] VITALS: BP 165/76; PULSE 68; O2SAT 100
--- NOTE | 2021-09-20 10:31 | PC.NURSE ---
Patient reported to the ED with complaint of back pain, started 9 days ago when lifting a garage door. She reports a throbbing pain is a 5/10 when resting, 8/10 with movement. States pain is radiating from lower back to right side, pain is from ribs to pelvis Reports history of T12 compression fracture. Denied having a fall. Denied LOC. Reports that smokes marijuana, and uses ibuprofen and tylenol to get the pain down to manageable level at night so she can sleep.
[2021-09-20 10:42] VITALS: O2SAT 100
[2021-09-20 10:43] VITALS: BP 158/72
[2021-09-20 10:58] LABS: Appearance Urine UA SL CLOUDY; Bilirubin Urine UA NEGATIVE (NEGATIVE); Color Urine UA YELLOW; Glucose Urine UA NEGATIVE (Negative); Ketones Urine UA NEGATIVE (NEGATIVE); Leukocyte Esterase Urine UA NEGATIVE (NEGATIVE); Nitrite Urine UA NEGATIVE (Negative); Occult Blood Urine UA 3+ (Negative); Protein Urine UA NEGATIVE (Negative); Urobilinogen Urine UA 0.2 E.U./dL (0.2)
[2021-09-20 11:13] LABS: Bacteria Urine Few (2-10); Culture Indicated Urine Cult Not Indicated; RBC Urine 1-5/HPF (0-5/HPF); Squamous Epithelial Cell Urine 1-5 /HPF (0-5/HPF); WBC Urine 0-1/HPF (0-5/HPF)
--- NOTE | 2021-09-20 11:58 | ED.BACK ---
HPI - Back Pain/Injury General Chief Complaint: Back Pain/Injury Stated Complaint: Thinks compression fracture of spine Time Seen by Provider: 09/20/21 11:13 Source: patient History of Present Illness HPI Narrative: Patient is a 61-year-old female history of alcoholism pain history of remote T12 fracture presenting today with concern for possible concern for vertebral fracture. She states that a week and a half ago she lifted her having carotid or and has had pain ever since. She does have some midline pain but also has some bilateral left flank pain currently more left-sided flank pain. She has some frequent urination but states she started on a vaginal cream. She denies any fever or chills. Pain does not radiate around to the her stomach. She only feels nauseous in the mornings when she does eat. She is currently not nauseous now. Pain does not radiate down her legs she has no lower extremity weakness Related Data Home Medications Medication Instructions Recorded Confirmed acyclovir 400 mg tablet 400 mg PO TID PRN 03/31/19 03/31/19 azelastine 137 mcg (0.1 %) nasal 1 spray INTRANASAL BID PRN 03/31/19 03/31/19 spray aerosol sertraline 100 mg tablet 100 mg PO QPM 03/31/19 03/31/19 Previous Rx's Medication Instructions Recorded diclofenac sodium 1 % topical gel 1 ganesh TOPICAL QID #100 gm 01/01/17 (Voltaren) ondansetron 4 mg disintegrating 4 mg PO Q6H PRN #10 tab 03/31/19 tablet hydrocodone 5 mg-acetaminophen 325 1 tab PO Q6H PRN #10 tab 09/20/21 mg tablet sulfamethoxazole 800 1 tab PO BID 5 Days #10 tab 09/20/21 mg-trimethoprim 160 mg tablet (Bactrim DS) Allergies Allergy/AdvReac Type Severity Reaction Status Date / Time amoxicillin [AMOXICILLIN] Allergy Intermediate HIVES Verified 04/01/19 14:14 Penicillins [PENICILLINS] Allergy Intermediate HIVES Verified 04/01/19 14:14 ENVIRONMENTAL Allergy Intermediate RUNNY Uncoded 04/01/19 14:14 NOSE, HEAD PRESSURE Review of Systems Review of Systems Narrative: GENERAL: Denies chills, fatigue, malaise, fever, sweats, travel HEENT: Denies sinus pain, ear pain, sore throat, difficulty swallowing, neck pain RESPIRATORY: Denies dyspnea, cough, wheezing, hemoptysis, sputum. CARDIOVASCULAR: Denies chest pain, palpitations, orthopnea, edema GASTROINTESTINAL: Denies nausea, vomiting, abdominal pain, diarrhea, constipation, melena. : see HPI MUSCULOSKELETAL: See HPI SKIN: No rash, no erythema, no pruritus NEUROLOGIC: Denies weakness, dizziness, headache, numbness, change in speech, confusion PSYCHIATRIC: No concerning psychosocial issues. 12 point review of systems is negative except for those stated above and HPI Patient History Medical History (Updated 09/20/21 @ 13:00 by Cassidy Costa DO) Depression HSV infection Seasonal allergic rhinitis Surgical History (System 04/01/19 @ 14:14 by Any Acosta) H/O thumb surgery History of tubal ligation S/P breast lumpectomy Social History (System 04/01/19 @ 14:14 by Any Acosta) Smoking Status: Former smoker Smoking Status: Former smoker Substance Use Type: marijuana Exam Initial Vital Signs Initial Vital Signs: Vital Signs Temperature 97.6 F 09/20/21 09:30 Pulse Rate 68 09/20/21 09:30 Respiratory Rate 16 09/20/21 09:30 Blood Pressure 173/79 H 09/20/21 09:30 Pulse Oximetry 100 09/20/21 09:30 GENERAL: Pleasant alert well-appearing 61-year-old female and in no acute distress. HEENT: Head atraumatic,EOMI, pupils reactive, face symmetric, moist mucous membranes CARDIOVASCULAR: Regular rate and rhythm without murmurs, rubs or gallops. RESPIRATORY: Breath sounds equal bilaterally, no wheezes rales or rhonchi. ABDOMEN: Soft, nontender. Normoactive bowel sounds all 4 quadrants. No guarding or rebound. BACK: Vertebral tenderness around L1 T12 no step-off no sign of trauma : Mild left CVA tenderness EXTREMITIES: Normal range of motion, no clubbing or edema. Neurovascularly intact NEUROLOGICAL: Alert and oriented x4.Normal gait and speech. SKIN: Warm, dry, no laceration, no petechiae, no rashes or lesions. Course Orders Ordered: ED Orders 09/20/21 10:51 Urinalysis and Microscopic Stat Urine Culture Stat 09/20/21 12:31 CT kidney ureter bladder (KUB) Stat Vital Signs Vital signs: Vital Signs - 8 hr 09/20/21 13:27 Pulse Rate 64 Respiratory Rate 18 Blood Pressure 149/79 H Pulse Oximetry 100 MDM - Back Pain/Injury Lab Data Labs: Lab Results 09/20/21 Range/Units 10:51 Urine Color Yellow Urine Appearance Sl cloudy Urine pH 5.0 (4.5-8.0) Ur Specific [place] 1.020 (1.000-1.035) Urine Protein Negative (Negative) Urine Glucose (UA) Negative (Negative) g/dL Urine Ketones Negative (NEGATIVE) Urine Occult Blood 3+ H (Negative) Urine Nitrate Negative (Negative) Urine Bilirubin Negative (NEGATIVE) Urine Urobilinogen 0.2 (0.2) E.U./dL Ur Leukocyte Esterase Negative (NEGATIVE) Urine RBC 1-5/hpf (0-5/HPF) Urine WBC 0-1/hpf (0-5/HPF) Ur Squamous Epith Cells 1-5 /hpf (0-5/HPF) Urine Bacteria Few (2-10) H (None) Ur Culture Indicated? Cult not indicated Urine Dip Bedside Urine Glucose Negative Bedside Urine Bilirubin - Negative Bedside Urine Ketone - Negative Urine Specific [place] 1.025 Bedside Urine Occult Blood ++ Bedside Urine pH 6.0 Bedside Urine Protein - Negative Bedside Urine Urobilinogen - Negative Bedside Urine Nitrite - Negative Bedside Urine Leukocytes - Negative Esterase Imaging Data XR lumbar: Radiologist's Impression: PROCEDURE:? XR LUMBAR SPINE 2-3V ? INDICATIONS:? sudden back pain ? TECHNIQUE:? 3 views of the lumbar spine were acquired.? ? COMPARISON:? None. ? FINDINGS:? ? Bones:? 5 [id number] vertebrae are present.? There is normal bony alignment.? Mild loss of height noted in the superior endplate of the T12 vertebral body.? No suspicious bony lesions.? Mild multilevel degenerative disc disease.? Mild facet hypertrophy noted in the lower lumbar spine.? ? Soft tissues:? Overlying bowel gas pattern is normal.? No suspicious soft tissue calcifications.? ? ? IMPRESSION:? Mild T12 superior endplate compression fracture of indeterminate age. If symptoms and/or clinical suspicion for pathology persists, evaluation with MRI should be considered for further assessment. ? ? Dictated by: Salma Garcia MD, PhD on 09/20/2021 at 10:12 ? ? CT scan - abdomen/pelvis: Radiologist's Impression: PROCEDURE:? CT KIDNEY URETER BLADDER (KUB) ? INDICATIONS:? left flank pain ? TECHNIQUE:? Axial sections were acquired from the lung bases to the pubic symphysis.? Coronal and sagittal reformats were performed.? For radiation dose reduction, the following was used: ?automated exposure control, adjustment of mA and/or kV according to patient size.? ? COMPARISON:? [facility], CT, CT ABDOMEN PELVIS W CON, 03/31/2019, 16:32.? [facility], CT, CT CHEST WITHOUT CONTRAST, 07/08/2020, 15:14.? [facility], CR, XR LUMBAR SPINE 2-3V, 09/20/2021, 9:37. ? FINDINGS:? Image quality:? Excellent.? ? Lung bases:? Unremarkable.? ? Heart:? No significant findings. ? URINARY: Right Kidney: ? No stones or hydronephrosis.? Right Ureter:? No hydroureter.? ? Left Kidney: ? No stones or hydronephrosis. Left Ureter:? No hydroureter.? Evaluation for a nonobstructing distal ureteral stone is limited due to multiple phleboliths in the pelvis.? ? Bladder:? The bladder is partially distended.? No stones. ? ? ? ABDOMEN: Liver:? Unremarkable.? ? Gallbladder:? Unremarkable.? ? Biliary ducts:? Unremarkable.? ? Pancreas:? Unremarkable.? ? Spleen:? Unremarkable.? ? Adrenal Glands:? Unremarkable.? ? ? Stomach and Bowel:? Stomach, small bowel loops, and colon are unremarkable.? The appendix is normal in appearance.? There are few colonic diverticula without acute diverticulitis. Peritoneum:? No abnormal intraperitoneal fluid.? No free air.? ? Ventral Wall: ? No hernia.? Abdominal Nodes:? No enlarged retroperitoneal or mesenteric lymph nodes.? Vessels:? Aorta and inferior vena cava are normal in size.? ? PELVIS: Pelvic Organs:? Unremarkable.? ? Pelvic Nodes: Unremarkable. Miscellaneous: No inguinal hernias are seen. ? ? ? Bones:? There is a mild superior endplate compression fracture of the T12 vertebral body which is new compared to the prior CT studies and is suggestive of an acute or subacute process.? There is mild loss of height of approximately 20% along the superior endplate.? A superior endplate Schmorl's node within the T11 vertebral body with associated compression deformity appears unchanged from the prior chest CT. ? IMPRESSION:? ? 1. No evidence of hydronephrosis or nephrolithiasis. ? 2. No hydroureter.? Evaluation for a nonobstructing distal ureteral stone is limited due to adjacent phleboliths in the left hemipelvis. ? 3. Mild colonic diverticulosis without acute diverticulitis. ? 4. Mild superior endplate compression fracture of the 212 vertebral body of indeterminate acuity but new compared to the prior CT.? The morphology is suggestive of an acute or subacute fracture.? No retropulsed bony fragments. ? ? Dictated by: Reddy Suarez M.D. on 09/20/2021 at 12:44 ? ? Approved by: Reddy Suarez M.D. on 09/20/2021 at 12:51 ? MDM Narrative Medical decision making narrative: The patient does have some midline tenderness she does have a remote history of a T12 fracture unclear that there is any new fracture. Also having some blood in her urine with some mild left flank pain. CT scan does not show any kidney stone again confirms T12 fracture. He does have bacteria in her urine with hematuria at urine culture is pending. Will treat her for mild UTI she overall appears very well she is afebrile. Discharge Plan Departure Patient Disposition: Home Clinical Impression: UTI (urinary tract infection) Instructions: DI for Urinary Tract Infection (UTI) Activity Restrictions/Additional Instructions: *You have been diagnosed with possible UTI, *What to do: At this time urine does show possible mild bladder infection will start you on antibiotics to see if it helps her pain. The CT scan does not show any type of kidney stone or severe fracture. Recommend light stretching heating pad and continuing with for medication *Continue to take medications as directed Bactrim tablet twice a day for 5 days Hydrocodone 1 tablet every 6 hours if needed for severe pain *Follow up with your primary care provider in 2-3 days or call [phone] *Return to ER if you should have increasing pain numbness tingling weakness fever chills or any new, worsening or concerning symptoms CONTROLLED SUBSTANCE DISCHARGE (Narcotoic/benzodiazepine/Flexeril/Phenergan) 1. You have been prescribed narcotic medications, it does have acetaminophen/Tylenol/paracetamol in it, DO NOT TAKE MORE THAN 4,00mg in 24 hours of Tylenol. TRAMADOL DOES NOT CONTAIN TYLENOL 2. Please understand that we cannot provide further refills of narcotics, benzodiazepines or controlled substances through the ED and her pain management will need to be through your provider. 3. While on these medications you cannot drive or operate heavy machinery. 4. You cannot sign legal documents or perform any duties such as this. 5. As long as you're taking opiate pain medications he should also be taking a stool softener such as Colace, Dulcolax, MiraLAX or prune juice, to help avoid constipation. Prescriptions: New hydrocodone-acetaminophen 5-325 mg tablet 1 tab PO Q6H PRN (Reason: pain) Qty: 10 0RF sulfamethoxazole-trimethoprim [Bactrim DS] 800-160 mg tablet 1 tab PO BID 5 Days Qty: 10 0RF No Action diclofenac sodium [Voltaren] 1 % gel 1 ganesh Topical QID Qty: 100 1RF Rx Instructions: hands for joint pain sertraline 100 MG tablet 100 mg PO QPM 0RF azelastine 137 mcg (0.1 %) aerosol,spray 1 spray intranasal BID PRN (Reason: Allergy Symptoms) 0RF acyclovir 400 MG tablet 400 mg PO TID PRN (Reason: Outbreak) 0RF ondansetron 4 mg tablet,disintegrating 4 mg PO Q6H PRN (Reason: nausea and vomiting) Qty: 10 0RF Referrals: Jewel Norton MD [Primary Care Provider] -
--- NOTE | 2021-09-20 12:31 | DI.CT.S_ITS ---
PROCEDURE: CT KIDNEY URETER BLADDER (KUB) INDICATIONS: left flank pain TECHNIQUE: Axial sections were acquired from the lung bases to the pubic symphysis. Coronal and sagittal reformats were performed. For radiation dose reduction, the following was used: automated exposure control, adjustment of mA and/or kV according to patient size. COMPARISON: [facility], CT, CT ABDOMEN PELVIS W CON, 03/31/2019, 16:32. [facility], CT, CT CHEST WITHOUT CONTRAST, 07/08/2020, 15:14. [facility], CR, XR LUMBAR SPINE 2-3V, 09/20/2021, 9:37. FINDINGS: Image quality: Excellent. Lung bases: Unremarkable. Heart: No significant findings. URINARY: Right Kidney: No stones or hydronephrosis. Right Ureter: No hydroureter. Left Kidney: No stones or hydronephrosis. Left Ureter: No hydroureter. Evaluation for a nonobstructing distal ureteral stone is limited due to multiple phleboliths in the pelvis. Bladder: The bladder is partially distended. No stones. ABDOMEN: Liver: Unremarkable. Gallbladder: Unremarkable. Biliary ducts: Unremarkable. Pancreas: Unremarkable. Spleen: Unremarkable. Adrenal Glands: Unremarkable. Stomach and Bowel: Stomach, small bowel loops, and colon are unremarkable. The appendix is normal in appearance. There are few colonic diverticula without acute diverticulitis. Peritoneum: No abnormal intraperitoneal fluid. No free air. Ventral Wall: No hernia. Abdominal Nodes: No enlarged retroperitoneal or mesenteric lymph nodes. Vessels: Aorta and inferior vena cava are normal in size. PELVIS: Pelvic Organs: Unremarkable. Pelvic Nodes: Unremarkable. Miscellaneous: No inguinal hernias are seen. Bones: There is a mild superior endplate compression fracture of the T12 vertebral body which is new compared to the prior CT studies and is suggestive of an acute or subacute process. There is mild loss of height of approximately 20% along the superior endplate. A superior endplate Schmorl's node within the T11 vertebral body with associated compression deformity appears unchanged from the prior chest CT. IMPRESSION: 1. No evidence of hydronephrosis or nephrolithiasis. 2. No hydroureter. Evaluation for a nonobstructing distal ureteral stone is limited due to adjacent phleboliths in the left hemipelvis. 3. Mild colonic diverticulosis without acute diverticulitis. 4. Mild superior endplate compression fracture of the 212 vertebral body of indeterminate acuity but new compared to the prior CT. The morphology is suggestive of an acute or subacute fracture. No retropulsed bony fragments. Dictated by: Reddy Suarez M.D. on 09/20/2021 at 12:44 Approved by: Reddy Suarez M.D. on 09/20/2021 at 12:51
[2021-09-20 13:27] VITALS: BP 149/79; PULSE 64; RESP 18; O2SAT 100
== END 2021-09-20 13:30 | disposition home or self-care (01) ==
PROVIDERS: Emergency Provider Emergency Medicine; PCP Family Medicine
DX: N39.0 Urinary tract infection, site not specified (principal); M48.54XA Collapsed vertebra, not elsewhere classified, thoracic region, initial encounter for fracture
CPT/HCPCS: 72100; 74176; 81001; 81003; 87086; 99282; 99284

== ENCOUNTER → 2023-04-25 12:00 | Outpatient (CLI) | payer MEDICARE, SELFPAY ==
--- NOTE | 2023-04-25 | DI.CT.S_ITS ---
PROCEDURE: CT LUNG LOW DOSE SCREENING INDICATIONS: former smoker TECHNIQUE: Noncontrast 2.0-2.5 mm thick sections acquired from the pulmonary apices to the posterior costophrenic angles. 7 mm thick axial MIP, and 5 mm coronal and sagittal reformats were then acquired. A low radiation dose technique was utilized. COMPARISON: None. FINDINGS: Image quality: Diagnostic, given the low radiation dose technique. Lungs and pleura: Biapical scarring is seen. 3 mm solid nodule in medial right apex is seen series 3, image 40. 4 mm subpleural nodule in posterior right upper lobe series 3, image 88. No other pulmonary nodule is seen. No pleural effusion or pneumothorax. Central and peripheral airway is patent. Mediastinum: Heart size is normal. No pericardial effusion. No mediastinal adenopathy by size criteria. Thoracic aorta and central pulmonary arteries are normal in size. Esophagus is normal in caliber. No hiatal hernia. Bones and chest wall: No suspicious bony lesions. Chronic appearing superior endplate compression deformities at T9, T11 and T12 levels are seen. No acute vertebral body compression fractures. No axillary or supraclavicular adenopathy by size criteria. Thyroid gland is within normal limits. Abdomen: Visualized upper abdomen solid organs and bowel loops appear normal in the absence of contrast. IMPRESSION: 1. 2 tiny 3 and 4 mm nodule seen in right upper lobe near apex. 2. Chronic appearing anterior wedge compression deformities at T9, T11 and T12 levels. LUNG-RADS 2, benign findings. Annual low-dose screening CT chest follow-up is recommended as long as patient meets the criteria. Dictated by: Sunny Benitez M.D. on 04/25/2023 at 15:58 Approved by: Sunny Benitez M.D. on 04/25/2023 at 16:18
--- NOTE | 2023-04-25 | DI.MG.S_ITS ---
BILATERAL DIGITAL SCREENING MAMMOGRAM 3D/2D WITH CAD: 04/25/2023 CLINICAL: Routine screening. Family history of breast cancer. Comparison is made to exams dated: 02/03/2019 mammogram, 10/16/2017 mammogram, and 11/08/2015 mammogram - [facility]. Both breasts are heterogeneously dense, which may obscure small masses (category c / 51-75% glandular tissue). Current study was also evaluated with a Computer Aided Detection (CAD) system. There are benign diffuse calcifications in the left breast. There also are benign calcifications in the right breast. Additionally, there are benign post operative findings in the left breast. No significant masses, calcifications, or other findings are seen in either breast. There has been no significant interval change. IMPRESSION: BENIGN There is no mammographic evidence of malignancy. A 1 year screening mammogram is recommended. Based on the Tyrer Cuzick model (a risk assessment model) the patient's lifetime risk is 16.9% and her 10 year risk is 8.4%. According to the ACR, ACS, and NCCN guidelines, an annual breast MRI exam along with mammogram is recommended if the patient's lifetime risk is 20% or greater. This exam was interpreted at Station ID: [id number]. NOTE: For mammograms, a report in lay terms will be sent to the patient. Approximately 15% of breast malignancies will not be visualized mammographically. In the management of a palpable breast mass, a negative mammogram must not discourage biopsy of a clinically suspicious lesion. Electronically Signed By: Magdiel meléndez/alvin:04/25/2023 17:45:12 copy to: MICHAEL MEJÍA letter sent: Normal Exam ACR BI-RADS Category 2: Benign Finding(s) 3342F
--- NOTE | 2023-04-25 | DI.RAD.S_ITS ---
Bone Density Report Name: FERNANDO BOND Age: 63 Sex: Female Ethnicity: White Date of : 1960 Indication: postmenopausal osteoporosis; Referring Provider: SILVANO TRACEY Study: Bone densitometry was performed. Exam Date: April 25, 2023 Accession number: [id number] Bone Density: Region BMD T-score Z-score Classification AP Spine(L1-L4) 0.630 -3.8 -2.0 Osteoporosis Femoral Neck (Left) 0.504 -3.1 -1.6 Osteoporosis Total Hip (Left) 0.625 -2.6 -1.4 Osteoporosis Femoral Neck (Right) 0.502 -3.1 -1.6 Osteoporosis Total Hip (Right) 0.580 -3.0 -1.7 Osteoporosis Total Hip Mean 0.602 -2.8 -1.6 Osteoporosis World Health Organization criteria for BMD impression classify patients as: Normal (T-score at or above -1.0), Osteopenia (T-score between -1.0 and -2.5), or Osteoporosis (T-score at or below -2.5). 10-year Fracture Risk: FRAX not reported because: Some T-score for Spine Total or Hip Total or Femoral Neck at or below -2.5 Previous Exams: -- Region Exam Age BMD T-score BMD Change BMD Change Date g/cm2 vs Baseline vs Previous -- AP Spine (L1-L4) 04/25/2023 63 0.630 -3.8 -0.076 (-10.8%)# -0.076 (-10.8%)# 12/13/2018 58 0.707 -3.1 Total Hip(Left) 04/25/2023 63 0.625 -2.6 -0.062 (-9.1%)# -0.062 (-9.1%)# 12/13/2018 58 0.687 -2.1 Total Hip(Right) 04/25/2023 63 0.580 -3.0 -0.083 (-12.5%)# -0.083 (-12.5%)# 12/13/2018 58 0.664 -2.3 -- *Denotes significance at 95% confidence level, LSC for AP Spine = 0.022 g/cm2, LSC for Total Hip = 0.027 g/cm2 # Denotes dissimilar scan types or analysis methods Impression: The patient has osteoporosis, based on the Total Spine T-score. No significant bone loss was observed. Discussion: HIGH RISK OF FRACTURE. BONE DENSITY IS UNDESIRABLY LOW AT ONE OR MORE SKELETAL SITES, CONSISTENT WITH OSTEOPOROSIS. ALSO, BONE DENSITY IS LOWER THAN EXPECTED FOR AGE AND SEX AT ONE OR MORE SKELETAL SITES; RECOMMEND A DILIGENT SEARCH FOR SECONDARY CAUSES OF BONE LOSS. This patient's lowest T-score meets the World Health Organization's (WHO) criteria for osteoporosis at one or more sites (T-score -2.5 or below). In untreated patients, the risk of osteoporotic fracture increases approximately two-fold for each 1.0 SD decrease in T-score. Low bone density is not the only risk factor for fracture; also consider factors such as patient's age, frailty or poor health, risk of falling, risk of injury, previous osteoporotic fracture, family history of osteoporosis, cigarette smoking, low body weight, etc. Not everyone with low bone mineral density has osteoporosis; osteomalacia and other metabolic bone disorders should also be considered. Patients who have osteoporosis should be evaluated for specific diseases and conditions (secondary causes) that may cause or contribute to bone loss. The [employer] (AACE) and National Osteoporosis Foundation (NOF) recommend pharmacologic intervention for all postmenopausal women whose T-score is in this range. Also, this patient's bone mineral density is below the range considered normal for healthy age-, sex-, and race-matched controls at least one site (Z-score -2.0 or below). This warrants careful evaluation for diseases and conditions that may contribute to accelerated bone loss. The patient should follow a healthful lifestyle (good nutrition with adequate calcium and vitamin D, and appropriate weight-bearing exercise). Follow-Up: Consider a repeat BMD and Vertebral Fracture Assessment (VFA) exam in 2 years or sooner if medically necessary, to reassess this patient's status. Reported by: PURVI COONEY M.D. on 04/25/2023 12:51:00 PM.
== END ==
PROVIDERS: PCP Family Medicine; Referring Provider Family Medicine; Visit Provider Family Medicine
DX: Z12.31 Encounter for screening mammogram for malignant neoplasm of breast (principal); M81.0 Age-related osteoporosis without current pathological fracture; Z12.2 Encounter for screening for malignant neoplasm of respiratory organs; Z80.3 Family history of malignant neoplasm of breast; Z78.0 Asymptomatic menopausal state; M43.8X4 Other specified deforming dorsopathies, thoracic region; Z87.891 Personal history of nicotine dependence
CPT/HCPCS: 71271; 77063; 77067; 77080

== ENCOUNTER → 2024-11-20 13:41 | Outpatient (CLI) | payer MEDICARE, SELFPAY ==
--- NOTE | 2024-11-20 13:46 | DI.MG.S_ITS ---
MM screening mammo BI: 11/20/2024. BI-RADS: 2 CLINICAL: 64-year old female for bilateral screening mammogram. Tyrer-Cuzick lifetime risk of 11.2%. No personal or first-degree family history of breast cancer. Current reported family history of breast cancer: maternal grandmother and maternal aunt. The patient had a prior left breast biopsy. PRIOR EXAMS 04/25/2023, 02/03/2019, 02/01/2018, 10/16/2017, 11/08/2015. MAMMOGRAPHY TECHNIQUE: 2D and 3D (tomosynthesis) digital mammographic views obtained, with additional images as needed for full coverage. Current study was also evaluated with a Computer Aided Detection (CAD) system. DENSITY C. The breasts are heterogeneously dense, which may obscure small masses. MAMMOGRAPHY FINDINGS Right: Benign-appearing calcification noted on the right. There are no suspicious masses, calcifications, or other findings in the breast. No significant change from comparison. Left: Benign-appearing calcification and post-surgical changes noted on the left. There are no suspicious masses, calcifications, or other findings in the breast. No significant change from comparison. IMPRESSION: * No evidence of malignancy with benign findings. RECOMMENDATIONS Bilateral * Annual screening mammography. OVERALL ASSESSMENT CATEGORY BI-RADS-2: Benign. The [employer] recommends annual screening mammography beginning at age 40 for women with average risk of breast cancer. ELECTRONICALLY SIGNED: Whit Chaparro M.D. on 11/21/2024 at 12:34:32 PM PT Interpreting Station ID: [id number]
--- NOTE | 2024-11-20 13:46 | DI.CT.S_ITS ---
PROCEDURE: CT LUNG LOW DOSE SCREENING INDICATIONS: Former Smoker TECHNIQUE: Noncontrast 2.0-2.5 mm thick sections acquired from the pulmonary apices to the posterior costophrenic angles. 7 mm thick axial MIP, and 5 mm coronal and sagittal reformats were then acquired. For radiation dose reduction, the following was used: automated exposure control, adjustment of mA and/or kV according to patient size. COMPARISON: [facility], CT, CT LUNG LOW DOSE SCREENING, 04/25/2023, 12:31. FINDINGS: Image quality: Diagnostic. Lower Neck: No enlarged lymph nodes. Thyroid: No thyroid nodules which require sonographic follow up, per consensus guidelines. Axillae: No enlarged lymph nodes. Chest Wall: Unremarkable. Bones: Unremarkable. Lungs and Pleura: No pneumothorax or pleural effusions. Stable juxtapleural nodules along the posterior right lung. Stable 2 millimeter nodule in the right lower lobe (series 3, image 228). New centrilobular ground-glass in the right lower lobe, likely post infectious given size and distribution mild centrilobular emphysema. Heart: Heart size is normal. No pericardial effusion. Thoracic Vessels: The aorta and pulmonary arteries demonstrate normal size. Mediastinum and Mirta: No enlarged lymph nodes. Esophagus: No wall thickening. No hiatal hernia. Upper Abdomen: Visualized upper abdomen solid organs and bowel loops appear normal. IMPRESSION: No suspicious pulmonary nodules. LUNG-RADS 2; continued annual screening, if eligible. Clinically Significant Non-pulmonary Findings: None. Dictated by: Brien Che M.D. on 11/20/2024 at 15:04 Approved by: Brien Che M.D. on 11/20/2024 at 15:09
== END ==
PROVIDERS: PCP Family Medicine; Referring Provider Family Medicine; Visit Provider Family Medicine
DX: Z87.891 Personal history of nicotine dependence (principal); Z12.31 Encounter for screening mammogram for malignant neoplasm of breast; R92.333 Mammographic heterogeneous density, bilateral breasts; Z80.3 Family history of malignant neoplasm of breast; Z12.2 Encounter for screening for malignant neoplasm of respiratory organs
CPT/HCPCS: 71271; 77063; 77067

== ENCOUNTER → 2025-06-22 11:15 | Outpatient (CLI) | payer MEDICARE, SELFPAY ==
--- NOTE | 2025-06-22 11:16 | DI.RAD.S_ITS ---
PROCEDURE: XR DEXA AXIAL SKELETON INDICATIONS: Postmenopausal Screening COMPARISON: [facility], CR, XR DEXA AXIAL SKELETON, 04/25/2023, 12:38. [facility], CR, XR DEXA AXIAL SKELETON, 12/13/2018, 14:07. FINDINGS: Lumbar Spine: Bone mineral density 0.697 g/cm2, T score -3.2, change from previous 10.6%, significant. Prior T-score is-3.8. Left Femoral Neck: Bone mineral density 0.489 g/cm2, T score -3.2. Prior T- score -3.1 , decreased. Left Hip: Bone mineral density 0.632 g/cm2, T score -2.5, no significant change. Prior T-score -2.6, no significant change. Fracture Risk Calculation (when applicable): 10-year fracture risk of a major osteoporotic fracture 27 percent and of a hip fracture 9.2 percent. (T score greater or equal to -1.0 to: NORMAL) (T score from -1.1 to -2.4: OSTEOPENIA) (T score less than or equal to -2.5: OSTEOPOROSIS) IMPRESSION: Lumbar spine and left hip remain osteoporotic with high risk of fracture. Significant interval increase in lumbar spine bone mineral density. Slight decrease in left femoral neck bone mineral density. Follow-up guidelines as follows: Osteoporosis: Consider a repeat DEXA and Vertebral Fracture Assessment (VFA) exam in 2 years or sooner if medically necessary, to reassess this patient's status. Osteopenia: Consider a repeat DEXA in 2-3 years to reassess this patient's status, or if there is a new clinical indication. Normal: Consider a repeat DEXA in 5 years or sooner, or if there is a new clinical indication. All treatment decisions require clinical judgment and consideration of individual patient factors, including patient preferences, comorbidities, previous drug use, risk factors not captured in the FRAX model (e.g., frailty, falls, vitamin D deficiency, increased bone turnover, interval significant decline in bone density ) and possible under- or over-estimation of fracture risk by FRAX. In addition, the NOF Guide recommends that FDA-approved medical therapies be considered in postmenopausal women and men age >= 50 years with a: * Hip or vertebral (clinical or morphometric) fracture * T-score of <=-2.5 at the spine or hip * Ten-year fracture probability by FRAX of >= 3% for hip fracture or >=20% for major osteoporotic fracture. Dictated by: Veronique DAVIS Interpreted: Mary Alejandro MD on 06/22/2025 at 12:34 Transcribed by: ENRIQUE on 06/22/2025 at 12:36 Approved by: Mary Alejandro M.D. on 06/22/2025 at 17:39
== END ==
LOC: RAD 11:16
PROVIDERS: PCP Physician Assistant; Referring Provider Physician Assistant; Visit Provider Physician Assistant
DX: M81.0 Age-related osteoporosis without current pathological fracture (principal); Z78.0 Asymptomatic menopausal state
CPT/HCPCS: 77080